=== PATIENT | female | born 1990 | race Caucasian/White ===

== ENCOUNTER 2020-08-14 13:59 | Inpatient (IN) | payer OTHER, SELFPAY ==
[2020-08-14] VITALS (8 sets, daily range): BP systolic 104–148; BP diastolic 55–86; PULSE 88–138; RESP 16–23; TEMP 36.3–37.3; O2SAT 98–100; BMI 36.3
[2020-08-14] MEDS: LORazepam 2 MG/ML VIAL IVPUSH ×2 (14:09→14:20)
--- NOTE | 2020-08-14 14:11 | CT_ITS ---
EXAMINATION: CT HEAD WITHOUT CONTRAST CLINICAL INFORMATION: Seizure COMPARISON: July 27, 2019 TECHNIQUE: Contiguous axial imaging was performed from the skull base to vertex without intravenous administration of contrast. This CT examination was performed using dose optimization techniques as appropriate, variously including the following: *Automated exposure control *Adjustment of mA and/or kV according to patient size (this includes techniques or standardized protocols for targeted exams where dose is matched to indication/reason for exam; i.e. extremities or head) *Use of iterative reconstruction technique DLP: 636 mGy-cm FINDINGS: There is no evidence of acute intracranial hemorrhage or territorial infarction. No abnormal mass effect or midline shift is seen. Hayes to white matter differentiation is well preserved. No extra-axial fluid collections are identified. The ventricles are normal in size. There is no abnormal attenuation within the brain parenchyma. The osseous structures and soft tissues are normal. The mastoid air cells and visualized portions of the paranasal sinuses are well aerated. IMPRESSION: No acute intracranial pathology.
--- NOTE | 2020-08-14 14:12 | ECG_ITS ---
Test Reason : SEIZURE Blood Pressure : / mmHG Vent. Rate : 139 BPM Atrial Rate : 139 BPM P-R Int : 134 ms QRS Dur : 084 ms QT Int : 284 ms P-R-T Axes : 052 095 -08 degrees QTc Int : 432 ms Sinus tachycardia Rightward axis T wave abnormality, consider inferior ischemia Abnormal ECG When compared with ECG of 11-DEC-2018 17:21, Heart rate has increased Referred By: Joel Verduzco Electronically Signed By:HARJINDER TAYLOR MD
--- NOTE | 2020-08-14 14:14 | PC.NURSE ---
ATIVAN 2 MG IVP PER VERBAL ORDER DR ERNST
[2020-08-14 14:18] LABS: Glucose, Whole Blood 91 mg/dL (60-115)
[2020-08-14] MEDS: 0.9 % Sodium Chloride 1,000 ML 999 ML IVCONT (14:26)
--- NOTE | 2020-08-14 14:34 | PC.NURSE ---
GOOD EFFECT AFTER RECEIVING 4 MG IVP ATIVAN FLUIDS HUNG AT WIDE OPEN
[2020-08-14 14:38] LABS: Glucose Urine UA NEG (NEG); Hematocrit 39.1 % (37-47); Leukocyte Esterase Urine 1+ (NEG); Mean Corpuscular HGB Conc 33.2 g/dl (31.0-35.0); Mean Corpuscular Hemoglobin 28.4 pg (27.0-33.0); Mean Corpuscular Volume 85.6 fL (80-98); Mean Platelet Volume 9.9 fL (9.4-12.3); Nitrite Urine NEG (NEG); PH 5.5 (5.0-8.0); Platelet Count 321 X10*3/uL (160-400); Red Blood Count 4.57 X10*6/uL (4.20-5.50); Red Cell Distribution Width 12.3 % (11.0-16.0); Specific Gravity - Urine >= 1.030 (1.005-1.025); Urine Blood TRACE (NEG); Urine Ketones 15 MG/DL (NEG); Urine Protein TRACE MG/DL (NEG-TRACE); White Blood Count 10.3 X10*3/uL (4.8-10.8)
[2020-08-14 14:40] LABS: Appearance Urine CLOUDY; Color Urine YELLOW
[2020-08-14 14:41] LABS: UPreg QC Valid YES; Urine Pregnancy NEGATIVE (NEGATIVE)
[2020-08-14 14:51] LABS: Bacteria Urine TRACE /LPF; Mucus Urine TRACE /LPF; RBC Urine 0-2 /HPF (0); Squamous Epithelial Cell Urine 2+ /LPF; WBC Urine 30-49 /HPF (0-4)
--- NOTE | 2020-08-14 14:53 | ED_ITS ---
HPI - Seizure General Chief Complaint: Seizure Stated Complaint: seizure Time Seen by Provider: 08/14/20 14:09 Source: EMS Mode of arrival: EMS Limitations: altered mental status History of Present Illness HPI Narrative: 29-year-old female known history of seizure, patient was witnessed having a seizure at the work place by other co-worker, reportedly patient had no fall patient was brought to the floor when she had seizure without hitting her head, on EMS arrival patient was still seizing she was given 2 mg of Versed IM, on arrival patient had another seizure without regaining of her consciousness patient was given multiple doses of Ativan now patient is not seizing. complaint: seizure Onset (ago): hour(s) (1) Description of Episode: tonic-clonic movement -: minutes(s) (5) Witnessed: Yes - by Other ( Co-worker.) Trauma: No Seizure History: Yes Place: Work Associated symptoms: other ( Unable to obtain history from the patient at this point.) Related Data Allergies Allergy/AdvReac Type Severity Reaction Status Date / Time amoxicillin [From AUGMENTIN] Allergy Mild RASH Unverified 07/15/20 15:51 clavulanic acid Allergy Mild RASH Unverified 07/15/20 15:51 [From AUGMENTIN] latex [LATEX] Allergy Unknown RASH Unverified 07/15/20 15:51 Review of Systems Review of Systems: Yes Unobtainable due to mental status ( Patient is postictal) [facility] Past Medical History Medical History Seizure Social History Social History Advance Directives: No Advance Directives Information Provided: Yes Physical Exam Vital Signs: Vital Signs: Vital Signs Temp Pulse Resp BP Pulse Ox 08/14/20 15:28 128 H 23 H 128/86 08/14/20 14:32 137 H 134/78 08/14/20 14:08 99.1 F 138 H 20 148/76 H 99 Body Mass Index 36.3 Const: General: patient obtunded ( postictal) Nutritional Appearance: obese Orientation/consciousness: patient obtunded ( postictal) HENMT: Head: Yes normal to inspection Ears: hearing grossly normal bilaterally General nose exam: Normal external nose present Eyes: General: appearance normal, both eyes and all related structures Eyelids: Yes eyelids normal Neck: Neck: Yes normal visual inspection Chest: Chest palpation & inspection: normal inspection of the chest Resp: Effort & Inspection: normal respiratory effort Cardio: Jugular venous distension: no JVD Rate: regular rate and tachycardic Rhythm: regular rhythm GI: Inspection: Yes normal to inspection Palpation (GI): Soft to palpation and nontender Percussion: Yes normal to percussion : General: Yes no CVA tenderness Back/Spine/Pelvis: Back: no CVA tenderness Skin: General skin exam: no rashes or lesions noted Neuro: General: patient obtunded ( postictal) and other ( unable to examine the patient due to postictal status.) Course Course Course Narrative: Multiple seizure with postictal period that lasted for more than an hour, Dr. Ahn from ICU was consulted at the bedside examining the patient thought that the patient will be stable on the floor, case discussed with the hospitalist who accepted the patient to the floor. Patient had unremarkable CT, unremarkable labs, patient is still lethargic unable to obtain history from the patient. We will load with Keppra. Consultations Consultation #1: from ICU Time: 16:42 Consultation #2: Dr. Pat from Neurology. Time: 16:42 MDM - Seizure MDM Narrative Medical decision making narrative: 29-year-old female who presented with status epilepticus. Afebrile. ICU/ neurology consult was obtained in the emergency room. Load with Keppra 1000 mg IV. Admit to medical floor monitor the patient with serial neuro exam. Differential Diagnosis Differential diagnosis: Likely status epilepticus Medical Records Attestation: I reviewed the patient's medical records. Lab Data Result diagrams: 08/14/20 14:31 08/14/20 14:31 Labs: Lab Results 08/14/20 08/14/20 08/14/20 Range/Units 14:06 14:31 14:31 WBC 10.3 (4.8-10.8) X10*3/uL RBC 4.57 (4.20-5.50) X10*6/uL Hgb 13.0 (12.0-16.0) g/dl Hct 39.1 (37-47) % MCV 85.6 (80-98) fL MCH 28.4 (27.0-33.0) pg MCHC 33.2 (31.0-35.0) g/dl RDW 12.3 (11.0-16.0) % Plt Count 321 (160-400) X10*3/uL MPV 9.9 (9.4-12.3) fL Absolute Nucleated RBC 0.000 (0.0-0.012) X10*3/uL Nucleated RBC % (auto) 0.0 (0.0-0.2) /100WBC Sodium 140 (135-145) mmol/L Potassium 3.7 (3.3-5.1) mmol/l Chloride 106 (96-108) mmol/L Carbon Dioxide 24 (22-29) mmol/L Anion Gap 14 (12-20) BUN 13 (9-16) mg/dL Creatinine 0.94 (0.5-1.4) mg/dL Estim Creat Clear Calc 104.7 Estimated GFR > 60 POC Glucose 91 (60-115) mg/dL Random Glucose 111 (60-115) mg/dL Calcium 9.3 (8.4-10.2) mg/dL Total Bilirubin (0.0-1.0) mg/dL Direct Bilirubin (0.0-0.5) mg/dL AST (5-31) U/L ALT (0-31) U/L Alkaline Phosphatase (39-117) U/L Total Protein (6.5-8.0) g/dL Albumin (3.5-5.0) g/dL Lipase (8-78) U/L Urine Color Urine Appearance Urine pH (5.0-8.0) Ur Specific [place] (1.005-1.025) Urine Protein (NEG-TRACE) MG/DL Urine Glucose (UA) (NEG) MG/DL Urine Ketones (NEG) MG/DL Urine Blood (NEG) Urine Nitrite (NEG) Ur Leukocyte Esterase (NEG) Urine RBC (0) /HPF Urine WBC (0-4) /HPF Ur Squamous Epith Cells /LPF Urine Bacteria /LPF Urine Mucus /LPF Urine Test (NEGATIVE) Urine Opiates Screen (Not Detect) Ur Barbiturates Screen (Not Detect) Ur Phencyclidine Scrn (Not Detect) Ur Amphetamines Screen (Not Detect) U Benzodiazepines Scrn (Not Detect) Urine Cocaine Screen (Not Detect) U Marijuana (THC) Screen (Not Detect) 10/17/20 10/17/20 10/17/20 Range/Units 14:31 14:31 14:32 WBC (4.8-10.8) X10*3/uL RBC (4.20-5.50) X10*6/uL Hgb (12.0-16.0) g/dl Hct (37-47) % MCV (80-98) fL MCH (27.0-33.0) pg MCHC (31.0-35.0) g/dl RDW (11.0-16.0) % Plt Count (160-400) X10*3/uL MPV (9.4-12.3) fL Absolute Nucleated RBC (0.0-0.012) X10*3/uL Nucleated RBC % (auto) (0.0-0.2) /100WBC Sodium (135-145) mmol/L Potassium (3.3-5.1) mmol/l Chloride (96-108) mmol/L Carbon Dioxide (22-29) mmol/L Anion Gap (12-20) BUN (9-16) mg/dL Creatinine (0.5-1.4) mg/dL Estim Creat Clear Calc Estimated GFR POC Glucose (60-115) mg/dL Random Glucose (60-115) mg/dL Calcium (8.4-10.2) mg/dL Total Bilirubin 0.4 (0.0-1.0) mg/dL Direct Bilirubin < 0.2 (0.0-0.5) mg/dL AST 17 (5-31) U/L ALT 20 (0-31) U/L Alkaline Phosphatase 100 (39-117) U/L Total Protein 7.6 (6.5-8.0) g/dL Albumin 4.5 (3.5-5.0) g/dL Lipase 28 (8-78) U/L Urine Color YELLOW Urine Appearance CLOUDY Urine pH 5.5 (5.0-8.0) Ur Specific [place] >= 1.030 H (1.005-1.025) Urine Protein TRACE (NEG-TRACE) MG/DL Urine Glucose (UA) NEG (NEG) MG/DL Urine Ketones 15 (NEG) MG/DL Urine Blood TRACE (NEG) Urine Nitrite NEG (NEG) Ur Leukocyte Esterase 1+ H (NEG) Urine RBC 0-2 (0) /HPF Urine WBC 30-49 H (0-4) /HPF Ur Squamous Epith Cells 2+ /LPF Urine Bacteria TRACE /LPF Urine Mucus TRACE /LPF Urine Test NEGATIVE (NEGATIVE) Urine Opiates Screen Not Detected (Not Detect) Ur Barbiturates Screen Not Detected (Not Detect) Ur Phencyclidine Scrn Not Detected (Not Detect) Ur Amphetamines Screen Not Detected (Not Detect) U Benzodiazepines Scrn POSITIVE H (Not Detect) Urine Cocaine Screen Not Detected (Not Detect) U Marijuana (THC) Screen Not Detected (Not Detect) Critical Care Time Critical Care Time Critical Care Time: Yes Total Critical Care Time: 40 Attestation: I spent 40 minutes for critical care level for this patient between bedside care, reviewing labs, discussing with consultants, reviewing CT of the head. Managing active status epilepticus.
[2020-08-14 15:02] LABS: Anion Gap 14 (12-20); Blood Urea Nitrogen 13 mg/dL (9-16); Calcium 9.3 mg/dL (8.4-10.2); Carbon Dioxide 24 mmol/L (22-29); Chloride 106 mmol/L (96-108); Creatinine Clr Calc Pharmacy 104.7; Estimated Glomerular Filt Rate > 60; Glucose Random 111 mg/dL (60-115); Potassium 3.7 mmol/l (3.3-5.1); Sodium 140 mmol/L (135-145)
[2020-08-14 15:05] LABS: Alanine Aminotransferase 20 U/L (0-31); Albumin Level 4.5 g/dL (3.5-5.0); Alkaline Phosphatase 100 U/L (39-117); Aspartate Amino Transferase 17 U/L (5-31); Bilirubin Direct < 0.2 mg/dL (0.0-0.5); Bilirubin Total 0.4 mg/dL (0.0-1.0); Lipase 28 U/L (8-78); Total Protein 7.6 g/dL (6.5-8.0)
[2020-08-14 15:05] LABS: Amphetamine Screen Urine Not Detected (Not Detect); Barbiturates, Urine Not Detected (Not Detect); Benzodiazepines Screen Urine POSITIVE (Not Detect); Cannabinoid Screen Urine Not Detected (Not Detect); Cocaine Screen Urine Not Detected (Not Detect); Opiate Screen Urine Not Detected (Not Detect); Phencyclidine Screen Urine Not Detected (Not Detect)
--- NOTE | 2020-08-14 16:16 | PC.NURSE ---
RECIEVED PATIENT ASLEEP. 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 IVF'S COMPLETED. PATIENT IN NO RESPIRATORY DISTRESS. WILL MONITOR FOR CHANGES
--- NOTE | 2020-08-14 16:22 | XR_ITS ---
EXAMINATION: XR CHEST CLINICAL INFORMATION: Status epilepticus. COMPARISON: None TECHNIQUE: Frontal view of the chest was obtained. FINDINGS: The lungs are clear. The heart and mediastinal structures are unremarkable. Mild to moderate thoracolumbar scoliosis is noted. IMPRESSION: No acute cardiopulmonary process.
--- NOTE | 2020-08-14 16:44 | PM.CCN ---
Critical Care Event Note Summary Code activated: No Narrative: 29-year-old lady with underlying history of seizure disorder on Keppra with a witnessed seizure episode while at work with Ativan administered and taken to ER. Patient with two more seizure episodes in the emergency room aborted by additional Ativan administration. Upon my examination, postictal, waking up slowly, normotensive, normoxemic on room air, protecting airway, tachycardic. CT head with no acute findings. Possible UTI on workup Agree with re-loading with Keppra and treatment of underlying UTI. At this time patient does not require intensive care unit level of care. Disposition discussed with Drs. Graham and Benny. Please notify for re-evaluation if patient's condition changes. Critical Care Time (minutes): 0
[2020-08-14] MEDS: levETIRAcetam 750 MG in 0.9 % Sodium Chloride 100 ML 400 MG IV (17:30)
--- NOTE | 2020-08-14 17:30 | PM.EVENT ---
Event Note Event Note: Patient seen and examined independently and was present during garcia portion of E/M service. Agree with midlevel's history, physical, assessment, and plan. 29F presented with convulsion convulsions has history of non epileptic seizures on vEEG from [facility] 05/2016, also has abnormal EEG in april 2016 kate, neuro, telemtry
[2020-08-14 18:03] LABS: Magnesium 1.8 mg/dL (1.6-2.6)
--- NOTE | 2020-08-14 18:07 | PC.NURSE ---
SIGNIFICANT OTHER'S NUMBERS, NEGIN [id number],,, WORK [id number]
--- NOTE | 2020-08-14 18:12 | P.HPIM_ITS ---
History of Present Illness Date of Service: 08/14/20 Chief Complaint: seizure this is a 29-year-old female with reported history of seizure who was brought in by ambulance after a witnessed seizure. she was given a dose of Versed by EMS EN route. She had a subsequent seizure in the emergency department And rec eived a total of 5 mg of Ativan. patient has been afebrile, lab work has been unremarkable, tox screen negative, brain CT negative. Patient was lethargic on exam and unable to provide any significant history. Previous notes and those from [facility] EMR were reviewed. Review of Systems Review of Systems: Yes Unobtainable due to mental status [facility] Medical History (Updated 08/14/20 @ 18:23 by MINH Anthony) Anxiety Depression Hypothyroidism Psychogenic nonepileptic seizure PTSD (post-traumatic stress disorder) Seizure Suicide attempt Pertinent family history: mother has a history of alcohol abuse father has a history of diabetes, hypertension brother has a history of diabetes, hypertension Surgical History (Updated 08/14/20 @ 18:19 by MINH Anthony) H/O knee surgery H/O tubal ligation History of cholecystectomy History of Sebastian fundoplication Social History Advance Directives: No Advance Directives Information Provided: Yes Meds Allergies Allergy/AdvReac Type Severity Reaction Status Date / Time amoxicillin [From AUGMENTIN] Allergy Mild RASH Verified 08/14/20 17:29 clavulanic acid Allergy Mild RASH Verified 08/14/20 17:29 [From AUGMENTIN] latex [LATEX] Allergy Unknown RASH Verified 08/14/20 17:29 Home Medications Medication Instructions Recorded Confirmed Type Unobtainable 08/14/20 08/14/20 History Physical Exam Vital Signs and Narrative: Vital Signs: Last Vital Signs Temp 99.1 F 08/14/20 14:08 Pulse 128 H 08/14/20 15:28 Resp 23 H 08/14/20 15:28 BP 128/86 08/14/20 15:28 Pulse Ox 99 08/14/20 14:08 Body Mass Index 36.3 Const: General: lethargic (responsive to painful stimuli only) Orientation/consciousness: lethargic (responsive to painful stimuli only) HENMT: Head: Yes normal to inspection and Yes normocephalic Eyes: Pupils: Equal, round and reactive pupils present EOM: EOMs intact bilaterally Resp: Effort & Inspection: normal respiratory effort and no respiratory distress Cardio: Rate: tachycardic Rhythm: regular rhythm GI: Inspection: No distended Palpation (GI): Soft to palpation Neuro: Cranial nerves: Yes Equal, round and reactive pupils present Results Labs Labs: Laboratory Tests 08/14/20 08/14/20 08/14/20 14:06 14:31 14:31 WBC 10.3 RBC 4.57 Hgb 13.0 Hct 39.1 MCV 85.6 MCH 28.4 MCHC 33.2 RDW 12.3 Plt Count 321 MPV 9.9 Absolute Nucleated RBC 0.000 Nucleated RBC % (auto) 0.0 Sodium 140 Potassium 3.7 Chloride 106 Carbon Dioxide 24 Anion Gap 14 BUN 13 Creatinine 0.94 Estim Creat Clear Calc 104.7 Estimated GFR > 60 POC Glucose 91 Random Glucose 111 Calcium 9.3 Magnesium 1.8 Total Bilirubin Direct Bilirubin AST ALT Alkaline Phosphatase Total Protein Albumin Lipase Urine Color Urine Appearance Urine pH Ur Specific [place] Urine Protein Urine Glucose (UA) Urine Ketones Urine Blood Urine Nitrite Ur Leukocyte Esterase Urine RBC Urine WBC Ur Squamous Epith Cells Urine Bacteria Urine Mucus Urine Test Urine Opiates Screen Ur Barbiturates Screen Ur Phencyclidine Scrn Ur Amphetamines Screen U Benzodiazepines Scrn Urine Cocaine Screen U Marijuana (THC) Screen 08/14/20 08/14/20 08/14/20 14:31 14:31 14:32 WBC RBC Hgb Hct MCV MCH MCHC RDW Plt Count MPV Absolute Nucleated RBC Nucleated RBC % (auto) Sodium Potassium Chloride Carbon Dioxide Anion Gap BUN Creatinine Estim Creat Clear Calc Estimated GFR POC Glucose Random Glucose Calcium Magnesium Total Bilirubin 0.4 Direct Bilirubin < 0.2 AST 17 ALT 20 Alkaline Phosphatase 100 Total Protein 7.6 Albumin 4.5 Lipase 28 Urine Color YELLOW Urine Appearance CLOUDY Urine pH 5.5 Ur Specific [place] >= 1.030 H Urine Protein TRACE Urine Glucose (UA) NEG Urine Ketones 15 Urine Blood TRACE Urine Nitrite NEG Ur Leukocyte Esterase 1+ H Urine RBC 0-2 Urine WBC 30-49 H Ur Squamous Epith Cells 2+ Urine Bacteria TRACE Urine Mucus TRACE Urine Test NEGATIVE Urine Opiates Screen Not Detected Ur Barbiturates Screen Not Detected Ur Phencyclidine Scrn Not Detected Ur Amphetamines Screen Not Detected U Benzodiazepines Scrn POSITIVE H Urine Cocaine Screen Not Detected U Marijuana (THC) Screen Not Detected Assessment and Plan (1) Psychogenic nonepileptic seizure: Status: Inactive (2) Seizure: Status: Acute this is a 29-year-old female with history of seizures who was brought to the emergency department after seizure. Seizure 1 seizure prior to arrival, 1 seizure in the ED. patient currently lethargic unclear if this represents postictal period or sedation from multiple doses of benzodiazepines patient is afebrile, tox screen negative, brain CT unremarkable per notes from [facility] patient has a history of nonepileptic seizures however she also had 1 mildly abnormal EEG in April 2016 was previously on Keppra, does not appear in her current medication claim history unclear if patient is currently following with a neurologist - the patient will be admitted to telemetry for close monitoring, frequent neuro checks. - IV Keppra - will obtain a Neurology consult to help direct further management UTI records from [facility] indicate a history of recurrent UTI. urinalys suggestive of possible UTI. unable to assess for symptoms at this time - will give empiric dose of ceftriaxone and follow up results of urine culture med rec pending at the time of admission This case was discussed with Dr. Verduzco
[2020-08-14] MEDS: 0.9 % Sodium Chloride 1,000 ML 125 ML IVCONT (21:04)
[2020-08-14] MEDS: cefTRIAXone sodium 1 GM in 0.9 % Sodium Chloride 50 ML IV (21:04)
[2020-08-15 03:37] VITALS: BP 100/66; PULSE 79; RESP 18; TEMP 36.4; O2SAT 98
[2020-08-15] MEDS: Acetaminophen 325 MG TABLET 650 MG PO (04:15)
[2020-08-15] MEDS: 0.9 % Sodium Chloride 1,000 ML 125 ML IVCONT (04:57)
[2020-08-15 08:00] VITALS: BP 127/70; PULSE 92; RESP 18; TEMP 37.1; O2SAT 98
--- NOTE | 2020-08-15 09:16 | PM.NEUROPN ---
Subjective Subjective Interval History: Birgit is a 29 years old woman, With history of a head injury resulting in loss of consciousness and following with multiple CT scans when she was 14 years old,who provided her own history stating that she was diagnosed with pseudoseizures at [facility] in 2013. she started having seizures in 2013. She denied any previous history of a drug user cocaine use or physical or sexual abuse. she was not following any neurologist and not particularly taking any seizure medicine. She was taking lamotrigine from her psychiatrist. She said that she continued to have seizures and she remember last 1 having been last June. Yesterday she came to emergency room after a generalized seizure and an emergency room she had another generalized seizure that was treated with lorazepam. She said that her seizures preceded with a feeling of blurred vision in her right eye and then something happening to her. She was told that she would pass out and shake all over and sometime urinate. Waking up she would find herself lethargic and tired. Apparently she had a video EEG done at [facility] that revealed no significant EEG abnormality. Physical Exam Vital Signs: Vital Signs: Vital Signs Temp Pulse Resp BP Pulse Ox 08/15/20 08:00 98.7 F 92 18 127/70 98 08/15/20 03:37 97.6 F 79 18 100/66 98 08/14/20 23:54 97.4 F 88 18 104/55 L 98 08/14/20 20:57 97.4 F 109 H 21 H 118/62 100 08/14/20 20:11 98.5 F 107 H 16 118/78 98 08/14/20 19:15 102 H 18 108/65 98 08/14/20 18:45 115 H 17 111/63 98 08/14/20 15:28 128 H 23 H 128/86 08/14/20 14:32 137 H 134/78 08/14/20 14:08 99.1 F 138 H 20 148/76 H 99 Body Mass Index 36.3 She was alert and awake with normal spontaneity of speech fluency comprehension and affect. Pupils were equal reactive to light and extraocular muscles were intact. Visual velasco are full to confrontation. Face was symmetrical does sometimes left eye blinking was slower than right. There was no pronator drift. Deep tendon reflexes were trace to absent with flexor plantar. Affect was normal. Neck was supple. Corgid-uh-wdpn testing was normal. Objective Data Labs CBC & Chem 7: 08/14/20 14:31 08/14/20 14:31 Labs: Laboratory Results - last 24 hr 08/14/20 08/14/20 08/14/20 14:06 14:31 14:31 WBC 10.3 RBC 4.57 Hgb 13.0 Hct 39.1 MCV 85.6 MCH 28.4 MCHC 33.2 RDW 12.3 Plt Count 321 MPV 9.9 Absolute Nucleated RBC 0.000 Nucleated RBC % (auto) 0.0 Sodium 140 Potassium 3.7 Chloride 106 Carbon Dioxide 24 Anion Gap 14 BUN 13 Creatinine 0.94 Estim Creat Clear Calc 104.7 Estimated GFR > 60 POC Glucose 91 Random Glucose 111 Calcium 9.3 Magnesium 1.8 Total Bilirubin Direct Bilirubin AST ALT Alkaline Phosphatase Total Protein Albumin Lipase Urine Color Urine Appearance Urine pH Ur Specific [place] Urine Protein Urine Glucose (UA) Urine Ketones Urine Blood Urine Nitrite Ur Leukocyte Esterase Urine RBC Urine WBC Ur Squamous Epith Cells Urine Bacteria Urine Mucus Urine Test Urine Opiates Screen Ur Barbiturates Screen Ur Phencyclidine Scrn Ur Amphetamines Screen U Benzodiazepines Scrn Urine Cocaine Screen U Marijuana (THC) Screen 08/14/20 08/14/20 08/14/20 14:31 14:31 14:32 WBC RBC Hgb Hct MCV MCH MCHC RDW Plt Count MPV Absolute Nucleated RBC Nucleated RBC % (auto) Sodium Potassium Chloride Carbon Dioxide Anion Gap BUN Creatinine Estim Creat Clear Calc Estimated GFR POC Glucose Random Glucose Calcium Magnesium Total Bilirubin 0.4 Direct Bilirubin < 0.2 AST 17 ALT 20 Alkaline Phosphatase 100 Total Protein 7.6 Albumin 4.5 Lipase 28 Urine Color YELLOW Urine Appearance CLOUDY Urine pH 5.5 Ur Specific [place] >= 1.030 H Urine Protein TRACE Urine Glucose (UA) NEG Urine Ketones 15 Urine Blood TRACE Urine Nitrite NEG Ur Leukocyte Esterase 1+ H Urine RBC 0-2 Urine WBC 30-49 H Ur Squamous Epith Cells 2+ Urine Bacteria TRACE Urine Mucus TRACE Urine Test NEGATIVE Urine Opiates Screen Not Detected Ur Barbiturates Screen Not Detected Ur Phencyclidine Scrn Not Detected Ur Amphetamines Screen Not Detected U Benzodiazepines Scrn POSITIVE H Urine Cocaine Screen Not Detected U Marijuana (THC) Screen Not Detected Microbiology Microbiology Results: Microbiology 08/14/20 14:24 Urine clean catch - Clean Catch Midstream Urine Culture - Preliminary Gram negative ranjit a noncontrast head CT did not reveal any significant abnormality. Progress Note: A&P Fall Risk Details Current Medications: Current Medications Generic Name Dose Route Start Last Admin Trade Name Jessica PRN Reason Stop Dose Admin Acetaminophen 650 mg 08/14/20 20:34 08/15/20 04:15 Acetaminophen 325 Mg Tablet PO 650 mg Q6H PRN Administration Pain, Mild (Pain Scale 1-3) Docusate Sodium 100 mg 08/14/20 20:34 Docusate Sodium 100 Mg Capsule PO DAILY PRN Constipation Sodium Chloride 1,000 mls @ 125 mls/hr 08/14/20 18:45 08/15/20 04:57 Ns IVCONT 125 mls/hr .Q8H ROSE Administration Ceftriaxone Sodium 1 gm/ 50 mls @ 100 mls/hr 08/15/20 20:30 Sodium Chloride IV Q24H ROSE Ondansetron HCl 4 mg 08/14/20 20:34 Ondansetron Hcl 4 Mg/2 Ml Vial IVPUSH Q8H PRN Nausea and Vomiting Pharmacy Consult 1 each 08/14/20 16:46 Consult Rx Perform Med Rec MISCELLANE ONCE PRN Consult order Sodium Chloride 3 ml 08/15/20 00:00 08/15/20 07:34 0.9 % Sodium Chloride Flush 3 Ml Syringe IVFLUSH Not Given QSHIFT ROSE Time Spent With Patient Time: Total time spent is greater than 50% in coordination of care (as documented) at patient's floor/unit and/or counseling patient: 29 years old woman who reported history of a head injury at age 14 probably resulting in at least level 3 concussion who started having seizure-like episode in 2013. she said that she was evaluated [facility] and was diagnosed with pseudoseizures. But she also had an ambulatory EEG at [facility] in 2016 that revealed left hemispheric sharp and slow waves without symptoms.She continued to have seizures and was admitted in [facility] yesterday with multiple seizures. She described an aura that could be epileptic followed by generalized convulsion. At this time possibility of both epileptic and nonepileptic seizures was entertained. My recommendation would be to continue levetiracetam 500 mg twice a day. I had a maryjane discussion with her and told her that we might have to evaluate her situation again. She should take her medicine regularly and not drive and not be involved in activities that could put her life in danger. She could make an appointment to see us for neurological follow-up. Time with patient: Greater than 35 minutes
--- NOTE | 2020-08-15 10:20 | PM.DS ---
DS: Providers Provider Date of admission: 08/14/20 17:35 Primary care physician: Unknown Physician Consults: 08/14/20 20:34 Consult to Physician Routine Consulting Provider: Polly Pat Reason for consultation: recurrent seizure Has provider been notified: No DS: Diagnosis Discharge Diagnosis (1) Psychogenic nonepileptic seizure: Status: Inactive (2) Seizure: Status: Acute (3) UTI (urinary tract infection): Status: Acute DS: Summary Hospital Course Hospital Course: [facility] this is a 29-year-old female with reported history of seizure who was brought in by ambulance after a witnessed seizure. she was given a dose of Versed by EMS EN route. She had a subsequent seizure in the emergency department And received a total of 5 mg of Ativan. patient has been afebrile, lab work has been unremarkable, tox screen negative, brain CT negative. Patient was lethargic on exam and unable to provide any significant history. Previous notes and those from [facility] EMR were reviewed. hospital course: patient was admitted for seizure. She was loaded with IV Keppra. She was seen by Neurology who given history believes patient has both epileptic and nonepileptic seizures. Recommendations were to continue home dose of Lamictal and add on Keppra 500 mg b.i.d.. She will follow-up with neurology as outpatient for further workup. Patient was also noted to have urinary tract infection, cultures are still pending, she will be discharged on p.o. Keflex. Time Spent with Patient Time attestation: Total time spent providing and/or coordinating discharge services: Physical Exam Vital Signs: Vital Signs: Vital Signs Temp Pulse Resp BP Pulse Ox 08/15/20 08:00 98.7 F 92 18 127/70 98 08/15/20 03:37 97.6 F 79 18 100/66 98 08/14/20 23:54 97.4 F 88 18 104/55 L 98 08/14/20 20:57 97.4 F 109 H 21 H 118/62 100 08/14/20 20:11 98.5 F 107 H 16 118/78 98 08/14/20 19:15 102 H 18 108/65 98 08/14/20 18:45 115 H 17 111/63 98 08/14/20 15:28 128 H 23 H 128/86 08/14/20 14:32 137 H 134/78 08/14/20 14:08 99.1 F 138 H 20 148/76 H 99 Body Mass Index 36.3 DS: Data Data Completed and Pending Labs on day of discharge: Labs from last 24 hours 08/14/20 08/14/20 08/14/20 14:32 14:31 14:31 WBC RBC Hgb Hct MCV MCH MCHC RDW Plt Count MPV Absolute Nucleated RBC Nucleated RBC % (auto) Sodium Potassium Chloride Carbon Dioxide Anion Gap BUN Creatinine Estim Creat Clear Calc Estimated GFR POC Glucose Random Glucose Calcium Magnesium Total Bilirubin 0.4 Direct Bilirubin < 0.2 AST 17 ALT 20 Alkaline Phosphatase 100 Total Protein 7.6 Albumin 4.5 Lipase 28 Urine Color Urine Appearance Urine pH Ur Specific [place] Urine Protein Urine Glucose (UA) Urine Ketones Urine Blood Urine Nitrite Ur Leukocyte Esterase Urine RBC Urine WBC Ur Squamous Epith Cells Urine Bacteria Urine Mucus Urine Test Urine Opiates Screen Not Detected Ur Barbiturates Screen Not Detected Levetiracetam Pending Ur Phencyclidine Scrn Not Detected Ur Amphetamines Screen Not Detected U Benzodiazepines Scrn POSITIVE H Urine Cocaine Screen Not Detected U Marijuana (THC) Screen Not Detected 08/14/20 08/14/20 08/14/20 14:31 14:31 14:31 WBC 10.3 RBC 4.57 Hgb 13.0 Hct 39.1 MCV 85.6 MCH 28.4 MCHC 33.2 RDW 12.3 Plt Count 321 MPV 9.9 Absolute Nucleated RBC 0.000 Nucleated RBC % (auto) 0.0 Sodium 140 Potassium 3.7 Chloride 106 Carbon Dioxide 24 Anion Gap 14 BUN 13 Creatinine 0.94 Estim Creat Clear Calc 104.7 Estimated GFR > 60 POC Glucose Random Glucose 111 Calcium 9.3 Magnesium 1.8 Total Bilirubin Direct Bilirubin AST ALT Alkaline Phosphatase Total Protein Albumin Lipase Urine Color YELLOW Urine Appearance CLOUDY Urine pH 5.5 Ur Specific [place] >= 1.030 H Urine Protein TRACE Urine Glucose (UA) NEG Urine Ketones 15 Urine Blood TRACE Urine Nitrite NEG Ur Leukocyte Esterase 1+ H Urine RBC 0-2 Urine WBC 30-49 H Ur Squamous Epith Cells 2+ Urine Bacteria TRACE Urine Mucus TRACE Urine Test NEGATIVE Urine Opiates Screen Ur Barbiturates Screen Levetiracetam Ur Phencyclidine Scrn Ur Amphetamines Screen U Benzodiazepines Scrn Urine Cocaine Screen U Marijuana (THC) Screen 08/14/20 14:06 WBC RBC Hgb Hct MCV MCH MCHC RDW Plt Count MPV Absolute Nucleated RBC Nucleated RBC % (auto) Sodium Potassium Chloride Carbon Dioxide Anion Gap BUN Creatinine Estim Creat Clear Calc Estimated GFR POC Glucose 91 Random Glucose Calcium Magnesium Total Bilirubin Direct Bilirubin AST ALT Alkaline Phosphatase Total Protein Albumin Lipase Urine Color Urine Appearance Urine pH Ur Specific [place] Urine Protein Urine Glucose (UA) Urine Ketones Urine Blood Urine Nitrite Ur Leukocyte Esterase Urine RBC Urine WBC Ur Squamous Epith Cells Urine Bacteria Urine Mucus Urine Test Urine Opiates Screen Ur Barbiturates Screen Levetiracetam Ur Phencyclidine Scrn Ur Amphetamines Screen U Benzodiazepines Scrn Urine Cocaine Screen U Marijuana (THC) Screen Preliminary micro results at discharge 08/14/20 14:24 Urine Culture - Preliminary Urine clean catch - Clean Catch Midstream Gram negative ranjit Discharge Plan Discharge Patient Disposition: Home, Self-Care Referrals: Polly Pat MD [Physician] - 1 Week (seizures) Physician,Unknown [Primary Care Provider] - Discharge Medications: New levetiracetam [Keppra] 500 mg tablet 500 mg PO Q12H Qty: 60 RF: 0 cephalexin [Keflex] 250 mg capsule 250 mg PO Q12H Qty: 6 RF: 0 lamotrigine [Lamictal] 100 mg tablet 100 mg PO BID Qty: 60 RF: 0 levothyroxine [Synthroid] 175 mcg tablet 175 mcg PO DAILY Qty: 30 RF: 0 albuterol sulfate 90 mcg/actuation HFA aerosol inhaler 1 inh inhalation QID PRN (Reason: sob) Qty: 6.7 RF: 1 lorazepam [Ativan] 0.5 mg tablet 0.5 mg PO BID PRN (Reason: anxiety) Qty: 14 RF: 0 No Action lorazepam 0.5 mg Tablet 0.5 mg PO DAILY PRN (Reason: Anxiety) RF: 0 lamotrigine [Lamictal] 100 mg Tablet 100 mg PO BID RF: 0 levothyroxine 200 mcg Capsule 200 mcg PO DAILY RF: 0 Discharge Orders: Discharge Order (Routine); Ordered 08/15/20 Ordered By: Joel Verduzco Activity on Discharge: no driving Visit Report Forms: Patient Portal Discharge page Care Plan Goals: recovery, prevent further seizures, treat uti Health Concerns: uti, seizures Plan of Treatment: continue your regular medications, started on keppra 500mg twice daily, follow up with neurology 3 days of keflex for uti, follow up with your PCP, if no resolution make sure no resistance in urine culture
[2020-08-15] MEDS: levETIRAcetam 500 MG TABLET PO (10:34)
--- NOTE | 2020-08-15 11:46 | MHC.CM.PN ---
pt dcd home no queta has own transportaion home
[2020-08-20 00:37] LABS: Levetiracetam Keppra <1.0 mcg/mL (12.0-46.0)
== END 2020-08-15 12:19 | disposition home or self-care (01) | DRG 101 ==
LOC: HO.ED 17:12 → HO.IMC 18:03
PROVIDERS: Admitting Provider Internal Medicine; Emergency Provider Emergency Medicine; Visit Provider Internal Medicine
DX: G40.909 Epilepsy, unspecified, not intractable, without status epilepticus (principal); F41.9 Anxiety disorder, unspecified; F32.9 Major depressive disorder, single episode, unspecified; Z91.5 Personal history of self-harm; Z87.440 Personal history of urinary (tract) infections; Z88.0 Allergy status to penicillin; Z79.890 Hormone replacement therapy; Z79.899 Other long term (current) drug therapy
CPT/HCPCS: 36415; 70450; 71045; 80048; 80076; 80177; 80307; 81001; 81025; 82947; 83690; 83735; 85027; 87086; 87088; 87186; 93005; 96361; 96365; 96375; 99233; 99285; J1953; J2060

== ENCOUNTER → 2021-05-30 10:49 | Outpatient (BNVA) | payer SELFPAY | DX: Z02.1 Encounter for pre-employment examination (principal) ==